=== PATIENT | female | born 1975 | race Caucasian/White ===

== ENCOUNTER → 2017-02-18 | Outpatient (CLI) | payer BC ==
--- NOTE | ~2017-02-18 | MY14 ---
[facility] A Service of [facility] & [facility] RADIOLOGY TEXT RESULTS PATIENT: QIANA DOUGLASS LOCATION: [facility] : 79 UNIT #: [id number] AGE: [address]: Kingsley Dave MD SEX: F ORDER DR: [id number] [facility] [address] [place], [place] [address] [id number] O MR#: [id number] Acc #: [id number] NAME: QIANA DOUGLASS : 1975 SEX: F STUDY DATE/TIME: 02/18/2017 11:33 UNIT: [facility] ROOM: STUDY DESCRIPTION: MY Post Bx Film Attending Physician: Kingsley Dave M.D. Referring Physician: Kingsley Dave M.D. Ordering Physician: Kingsley Dave M.D. Primary Care Physician: She Guerrero Aprn MEDICAL IMAGING REPORT This report is preliminary unless electronic signature is present EXAM Clip placement mammogram 02/18/2017 INDICATION 41-year-old female with the history of an abnormal mammogram and ultrasound performed 02/10/2017. Abnormal axillary nodes concerning for malignancy. Ultrasound-guided core biopsy requested. FINDINGS Axillary tail image of the right breast was obtained and reviewed with an FDA-approved CAD device and compared with most recent mammogram of 02/10/2017. The image demonstrates abnormal adenopathy with associated calcifications in the axillary tail of the right breast. There is some adjacent stranding related to the interval ultrasound-guided core biopsy. The biopsy clip is anterior to the dominant node that was sampled in the right axilla. This is concordant with ultrasound placement anterior to the node. Please see the final pathology report for further details. Pathology results are pending. Please see the ultrasound-guided core biopsy report and pathology final report for further details. IMPRESSION The clip placement mammogram demonstrates appropriate clip placement anterior to the dominant sampled node in the right axilla. This is concordant with ultrasound placement. Please see the final pathology report for further details. BIRADS: 4 Suspicious abnormality; biopsy should be considered. Dictated by... Kwesi Riley M.D. [facility] A Service of [facility] & [facility] RADIOLOGY TEXT RESULTS PATIENT: QIANA DOUGLASS LOCATION: [facility] : 79 UNIT #: [id number] AGE: [address]: Kingsley Dave MD SEX: F ORDER DR: THIS IS AN ELECTRONICALLY VERIFIED REPORT Kwesi Riley M.D. at 02/18/2017 4:57 PM Keila TD: 02/18/2017 13:12 JOB #: [id number] MEDICAL IMAGING REPORT Page 1 of 1 COPY
--- NOTE | ~2017-02-18 | US200 ---
[facility] A Service of [facility] & [facility] RADIOLOGY TEXT RESULTS PATIENT: QIANA DOUGLASS LOCATION: [facility] : 79 UNIT #: [id number] AGE: [address]: Kingsley Dave MD SEX: F ORDER DR: [id number] [address] [place], [place] [address] [id number] O MR#: [id number] Acc #: [id number] NAME: QIANA DOUGLASS : 1975 SEX: F STUDY DATE/TIME: 02/18/2017 10:45 UNIT: [facility] ROOM: STUDY DESCRIPTION: US Breast Guided Bx 1st Lesion Attending Physician: Kingsley Dave M.D. Referring Physician: Kingsley Dave M.D. Ordering Physician: Kingsley Dave M.D. Primary Care Physician: She Guerrero Aprn MEDICAL IMAGING REPORT This report is preliminary unless electronic signature is present REVISED REPORT SEE ADDENDUM EXAM Ultrasound-guided core biopsy of the axillary node and ultrasound-guided clip placement PROCEDURE 02/18/2017 INDICATIONS 41-year-old female with history of right-sided breast pain for 3 weeks. History of ovarian cancer. Abnormal mammogram and ultrasound studies performed 02/10/2017. Ultrasound-guided core biopsy of an axillary node has been requested. FINDINGS The patient's prior ultrasound and mammography studies were reviewed. Survey images here in the department confirmed adenopathy in the right axilla. It was adequately visualized to proceed. The procedure and risks were explained to the patient. Risks include but not limited to bleeding, infection, damage to adjacent structures. The patient gave both oral and written consent to proceed and the consent form was signed and on the chart prior to the procedure. Prior to the procedure a "time-out" protocol was also followed to confirm patient identity and procedure details. The axillary tail of the right breast was prepped and draped in the usual sterile fashion. Maximum sterile-barrier technique appropriate for procedure guidelines was utilized. This included the use of sterile gloves, sterile instruments, and sterile barriers. Local incision was [facility] A Service [facility] RADIOLOGY TEXT RESULTS PATIENT: QIANA DOUGLASS LOCATION: [facility] : 79 UNIT #: [id number] AGE: [address]: Kingsley Dave MD SEX: F ORDER DR: achieved about 4 mL of the buffered lidocaine solution. Thereafter, using ultrasound guidance, a 14-gauge core biopsy device was advanced to the margin of a dominant hypoechoic, abnormal-appearing lymph node in the axillary tail. Appropriate needle location was documented with ultrasound throughout and images demonstrating appropriate needle placement were saved to the PACS system. 3 core specimens were obtained from the mass and placed into formalin solution. At this point the biopsy procedure was concluded. Using the same skin entrance site, a metallic biopsy clip introducer was advanced to the margin of the sampled lymph node. Appropriate needle location was documented with ultrasound throughout and images demonstrating appropriate needle placement were saved to the PACS system. The biopsy clip was deployed immediately anterior to the node that had been previously sampled. A clip placement mammogram demonstrated appropriate clip placement immediately adjacent to the dominant note that have been previously sampled. Imaging findings are concordant. Please see the final pathology report for further details. Pathology results are pending at this time. IMPRESSION 1. Successful ultrasound-guided core biopsy of an abnormal appearing hypoechoic cystic lymph node in the right axilla. No immediate post procedure complications. 2. Successful ultrasound-guided clip deployment immediately adjacent to the dominant sampled lymph node. Appropriate clip placement was confirmed with a postprocedure clip placement mammogram. 3. Please see the final pathology report for further details. Pathology results are pending at this time. BIRADS: 4 - Suspicious abnormality - Biopsy should be considered Dictated by... Kwesi Riley M.D. 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 [facility] A Service [facility] RADIOLOGY TEXT RESULTS PATIENT: QIANA DOUGLASS LOCATION: [facility] : 79 UNIT #: [id number] AGE: [address]: Kingsley Dave MD SEX: F ORDER DR: origin. Imaging findings and pathology findings are concordant. Surgical referral is recommended. Please see the final pathology report for further details. Dictated by... Kwesi Riley M.D. THIS IS AN ELECTRONICALLY VERIFIED REPORT Kwesi Riley M.D. at 03/03/2017 7:42 AM KAYLIE/giuseppe TD: 02/28/2017 09:43 JOB #: [id number] CC: Dallin/malcolm Please Delete MEDICAL IMAGING REPORT Page 1 of 1 COPY
== END | disposition home or self-care (01) ==
LOC: CWCC 10:06
DX: C77.3 Secondary and unspecified malignant neoplasm of axilla and upper limb lymph nodes (principal); C56.9 Malignant neoplasm of unspecified ovary
CPT/HCPCS: 88305; G0204